=== PATIENT | male | born 1995 | race Caucasian/White ===

== ENCOUNTER 2024-05-25 08:36 | Emergency (ER) | payer SELFPAY ==
[2024-05-25] MEDS ORDERED: Ondansetron ODT 4 MG TAB ONE (08:53)
== END 2024-05-25 09:55 | disposition home or self-care (01) ==
LOC: CSHERS 08:36
DX: R11.2 Nausea with vomiting, unspecified (principal); R19.7 Diarrhea, unspecified; R10.9 Unspecified abdominal pain; F17.290 Nicotine dependence, other tobacco product, uncomplicated
CPT/HCPCS: 87428; 99284; Q0162

== ENCOUNTER 2024-06-02 08:38 | Emergency (ER) | payer SELFPAY ==
[2024-06-02 09:17] LABS: #Basophils 0.03 10x3/uL (0.0-0.2); #Eosinophils 0.62 10x3/uL (0.0-0.5); #Monocytes 1.22 10x3/uL (0.0-1.1); #Neutrophils 6.98 10x3/uL (1.5-8.4); %Basophils 0.3 % (0.0-2.0); %Eosinophils 5.7 % (0.0-6.0); %Lymphocytes 18.3 % (18.0-47.0); %Monocytes 11.2 % (0.0-10.0); %Neutrophils 64.1 % (40.0-75.0); Hematocrit 43.7 % (38.8-50.0); Hemoglobin 14.8 g/dL (13.5-17.5); Mean Corpuscular HGB CONC 33.9 g/dL (32.0-36.0); Mean Corpuscular Hemoglobin 30.1 pg (27.0-33.0); Mean Platelet Volume 9.7 fL (7.4-10.4); Platelet Count 317 10x3/uL (150-450); RBC Distribution Width 11.9 % (11.5-14.5); Red Blood Cell (RBC) Count 4.91 10x6/uL (4.32-5.72); White Blood Cell (WBC) Count 10.88 10x3/uL (3.5-10.5)
[2024-06-02 09:39] LABS: ALT (SGPT) 16 U/L (Less than 45); AST (SGOT) 21 U/L (11-34); Albumin 4.4 g/dL (3.1-4.5); Alkaline Phosphatase 71 U/L (40-110); Anion Gap 9 mmol/L (10-20); BUN (Urea Nitrogen) 12 mg/dL (8.9-20.6); Calc. Creatinine Clearance 0 mL/min (70-130); Calcium 8.9 mg/dL (7.8-10.44); Carbon Dioxide 27 mmol/L (22-29); Chloride 107 mmol/L (98-107); Estimated GFR 121; Globulin 3.1 g/dL (2.4-3.5); Glucose 103 mg/dL (70-105); Lipase 18 U/L (8-78); Potassium 4.3 mmol/L (3.5-5.1); Protein, Total 7.5 g/dL (6.0-8.3); Sodium 139 mmol/L (136-145)
== END 2024-06-02 10:30 | disposition home or self-care (01) ==
LOC: CSHERS 08:38
DX: R19.7 Diarrhea, unspecified (principal); F17.290 Nicotine dependence, other tobacco product, uncomplicated; R10.9 Unspecified abdominal pain
CPT/HCPCS: 36415; 80053; 83690; 85025; 96360